=== PATIENT | female | born 1950 | race African-American/Black ===

== ENCOUNTER 2024-04-03 07:52 | Observation (INO) | payer MEDICARE ==
[2024-04-03 09:12] LABS: Anion Gap 16 mmol/L (10-20); BUN (Urea Nitrogen) 12 mg/dL (9.8-20.1); Calc. Creatinine Clearance 68 mL/min (70-130); Calcium 9.7 mg/dL (7.8-10.44); Carbon Dioxide 22 mmol/L (23-31); Chloride 105 mmol/L (98-107); Estimated GFR 72; Glucose 103 mg/dL (83-110); Potassium 4.1 mmol/L (3.5-5.1); Sodium 139 mmol/L (136-145)
[2024-04-03 09:31] LABS: INR-International Normal Ratio 1.1; PTT 26.6 sec (22.0-33.0); Prothrombin Time 11.9 sec (9.5-12.1)
[2024-04-03] MEDS ORDERED: Heparin 10,000 UNITS/ 10 ML VIAL ONE (09:39)
[2024-04-03] MEDS ORDERED: Lidocaine 1% (PF) 30 ML VIAL ONE (09:39)
[2024-04-03 09:46] LABS: #Basophils 0.02 10x3/uL (0.0-0.2); #Eosinphils 0.05 10x3/uL (0.0-0.5); #Monocytes 0.41 10x3/uL (0.0-1.1); #Neutrophils 2.62 10x3/uL (1.5-8.4); %Basophils 0.5 % (0.0-2.0); %Eosinophils 1.2 % (0.0-6.0); %Lymphocytes 26.8 % (18.0-47.0); %Monocytes 9.6 % (0.0-10.0); %Neutrophils 61.4 % (40.0-75.0); Hemoglobin 13.1 g/dL (12.0-15.5); Mean Corpuscular HGB CONC 32.8 g/dL (32.0-36.0); Mean Corpuscular Hemoglobin 24.6 pg (27.0-33.0); Mean Corpuscular Volume 75.2 fL (81.6-98.3); Mean Platelet Volume 10.6 fL (7.4-10.4); RBC Distribution Width 15.2 % (11.5-14.5); Red Blood Cell (RBC) Count 5.32 10x6/uL (3.90-5.03); White Blood Cell (WBC) Count 4.3 10x3/uL (3.5-10.5)
[2024-04-03 10:01] LABS: Platelet Count 133 10x3/uL (150-450)
[2024-04-03 10:02] LABS: Hypochromia SLIGHT = 6-15 cells (100X) (0-5/hpf); Microcytosis SLIGHT = 6-15 cells (100X) (0-5/hpf)
[2024-04-03 10:03] LABS: Platelet Clumps SLIGHT
[2024-04-03] MEDS ORDERED: Iopamidol 300 61% 100 ML VIAL FS ONE (10:48)
[2024-04-03] MEDS ORDERED: Midazolam HCl 2 mg/2 ml Vial ONE (11:25)
[2024-04-03] MEDS ORDERED: fentaNYL 50 mcg/mL 1 mL Vial ONE (11:25)
[2024-04-03] MEDS ORDERED: TICAGRELOR 90 MG TABLET ONE (12:09)
[2024-04-03] MEDS ORDERED: Nitroglycerin 50 MG/250 ML BOT 250 ML ONE (12:31)
[2024-04-03] MEDS ORDERED: Loperamide HCl 2 MG CAP PO PRN (13:12)
[2024-04-03] MEDS ORDERED: Ondansetron ODT 4 MG TAB PO PRN (13:12)
[2024-04-03] MEDS ORDERED: Senokot S 8.6-50 MG TAB PO PRN (13:12)
[2024-04-03] MEDS ORDERED: Sodium Chloride 0.9% 200 ML IV PRN (13:18)
[2024-04-03] MEDS ORDERED: Nitroglycerin 0.4 MG TAB (25 Tab Bottle) SL PRN (13:18)
[2024-04-03] MEDS ORDERED: hydrALAZINE 20 MG/ML VIAL SLOW IVP PRN (13:20)
[2024-04-03] MEDS ORDERED: Acetaminophen 325 MG TAB ONE (13:22)
[2024-04-03 16:37] VITALS: BMI 36.3
[2024-04-03] MEDS: Carvedilol 6.25 MG TAB PO SCH (18:30)
[2024-04-03] MEDS: Acetaminophen 325 MG TAB PO SCH (18:30)
[2024-04-03] MEDS: Nicotine 14 MG PATCH TD SCH (18:31)
[2024-04-03] MEDS: TICAGRELOR 90 MG TABLET PO SCH (20:45)
[2024-04-04 05:40] LABS: #Basophils 0.02 10x3/uL (0.0-0.2); #Eosinphils 0.05 10x3/uL (0.0-0.5); #Monocytes 0.49 10x3/uL (0.0-1.1); #Neutrophils 3.01 10x3/uL (1.5-8.4); %Basophils 0.5 % (0.0-2.0); %Eosinophils 1.1 % (0.0-6.0); %Lymphocytes 19.4 % (18.0-47.0); %Neutrophils 67.8 % (40.0-75.0); Hematocrit 39.8 % (34.9-44.5); Hemoglobin 13.3 g/dL (12.0-15.5); Mean Corpuscular HGB CONC 33.4 g/dL (32.0-36.0); Mean Corpuscular Hemoglobin 24.8 pg (27.0-33.0); Mean Corpuscular Volume 74.3 fL (81.6-98.3); Mean Platelet Volume 11.1 fL (7.4-10.4); Platelet Count 179 10x3/uL (150-450); RBC Distribution Width 15.1 % (11.5-14.5); Red Blood Cell (RBC) Count 5.36 10x6/uL (3.90-5.03); White Blood Cell (WBC) Count 4.4 10x3/uL (3.5-10.5)
[2024-04-04 05:48] LABS: Anion Gap 13 mmol/L (10-20); BUN (Urea Nitrogen) 9 mg/dL (9.8-20.1); Calc. Creatinine Clearance 80 mL/min (70-130); Calcium 9.4 mg/dL (7.8-10.44); Carbon Dioxide 21 mmol/L (23-31); Chloride 104 mmol/L (98-107); Estimated GFR 77; Glucose 126 mg/dL (83-110); Potassium 3.8 mmol/L (3.5-5.1); Sodium 134 mmol/L (136-145)
[2024-04-04 08:02] VITALS: TEMP 98.7
[2024-04-04] MEDS: Amlodipine 5 MG TAB PO SCH (08:30)
[2024-04-04] MEDS: Aspirin 81 mg Enteric Coated Tablet PO SCH (08:30)
[2024-04-04] MEDS: Rosuvastatin 20 MG TAB PO SCH (08:31)
[2024-04-04 11:31] VITALS: BP 113/58
== END 2024-04-04 12:13 | disposition home or self-care (01) ==
LOC: CSHCCL 07:52 → CSHTELE 16:08
PROVIDERS: ADMIT Specialist; ATTEND Specialist
PROC: 4A023N7 Measurement of Cardiac Sampling and Pressure, Left Heart, Percutaneous Approach (ICD-10-PCS; principal; 2024-04-03)
PROC: B2050ZZ Plain Radiography of Left Heart using High Osmolar Contrast (ICD-10-PCS; 2024-04-03)
DX: R94.39 Abnormal result of other cardiovascular function study (principal); I25.10 Atherosclerotic heart disease of native coronary artery without angina pectoris; I50.20 Unspecified systolic (congestive) heart failure; I10 Essential (primary) hypertension; Z95.1 Presence of aortocoronary bypass graft; E78.5 Hyperlipidemia, unspecified; F17.200 Nicotine dependence, unspecified, uncomplicated; Z79.82 Long term (current) use of aspirin; Z88.5 Allergy status to narcotic agent; Z79.899 Other long term (current) drug therapy; Z88.8 Allergy status to other drugs, medicaments and biological substances
CPT/HCPCS: 71045; 80048 ×2; 85025 ×2; 85347 ×2; 85610; 85730; 93459; C1725; C1769 ×2; C1874 ×2; C1887 ×4; C1894; C9600 ×2; J1644; J2001; J2250; J3010; 36415; 92928; 93005; 93010; 99152; 99153; G0378; Q9967